=== PATIENT | male | born 1955 | race Two or more races ===

== ENCOUNTER 2022-10-16 06:17 | Day surgery (SDC) | payer OTHER ==
[~2022-10-16] VITALS: Ht 181.6 cm; Wt 99.8 kg
[~2022-10-16 06:17] MED LIST: ACTOS15 MG PO; ATORVASTATIN CA10 MG PO; CARDURA1 MG PO; COZAAR50 MG PO; SYNTHROID75 MCG PO
[2022-10-16] MEDS ORDERED: CEPHALEXIN500 MG PO (15:15)
== END 2022-10-16 17:55 | disposition home or self-care (01) ==
LOC: CIR.AMB 06:17
PROVIDERS: ATTEND Otolaryngology Otology & Neurotology
DX: H61.321 Acquired stenosis of right external ear canal secondary to inflammation and infection (principal); H90.11 Conductive hearing loss, unilateral, right ear, with unrestricted hearing on the contralateral side; H70.11 Chronic mastoiditis, right ear; Z20.822 Contact with and (suspected) exposure to COVID-19; Z88.8 Allergy status to other drugs, medicaments and biological substances